=== PATIENT | female | born 2000 | race Caucasian/White ===

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

== ENCOUNTER 2024-05-09 10:12 | Emergency (ER) | payer MEDICAID ==
[~2024-05-09] VITALS: Ht 162.6 cm; Wt 77.8 kg
[2024-05-09 10:35] VITALS: PULSE 71
[2024-05-09 10:39] LABS: BILIRUBIN,URINE NEGATIVE (Neg); CLARITY,URINE CLEAR (Clear); COLOR,URINE STRAW (Yellow); GLUCOSE, URINE NEGATIVE (Neg); KETONES,URINE NEGATIVE (Neg); LEUKOCYTE ESTERASE ,URINE TRACE (Neg); NITRITES, URINE NEGATIVE (Neg); OCCULT BLOOD,URINE NEGATIVE (Neg); PH,URINE 6.5 (4.8-8.0); PROTEIN,URINE NEGATIVE (Neg); UA COLLECTION TYPE CLN CATCH MIDSTREAM; UROBILINOGEN,URINE 0.2 E.U/dL (0.2-1.0)
[2024-05-09 10:41] LABS: URINE HCG NEGATIVE (NEG)
[2024-05-09 10:42] LABS: BASOPHILS % (AUTO) 0.4 % (0-1); EOSINOPHILS % (AUTO) 0.5 % (0-6); HEMATOCRIT 45.1 % (35.0-45.0); HEMOGLOBIN 15.2 g/dl (12.0-16.0); LYMPHOCYTES # (AUTO) 1.8 X10'3 (1.1-4.8); LYMPHOCYTES % (AUTO) 27.6 % (21-51); MEAN CORPUSCULAR HEMOGLOBIN 30.7 PG (27.0-31.0); MEAN CORPUSCULAR HGB CONC 33.7 g/dL (33.0-36.5); MEAN CORPUSCULAR VOLUME 91.3 FL (78-98); MEAN PLATELET VOLUME 7.9 FL (7.4-10.4); MONOCYTES # (AUTO) 0.3 X10'3 (0-0.9); MONOCYTES % (AUTO) 4.2 % (2-12); NEUTROPHILS # (AUTO) 4.4 X10'3 (1.8-7.7); NEUTROPHILS % (AUTO) 67.3 % (42-75); PLATELET COUNT 265 X10'3 (140-440); RED BLOOD COUNT 4.94 X10'6 (4.20-5.60); RED CELL DISTRIBUTION WIDTH 13.6 % (11.5-14.5); WHITE BLOOD COUNT 6.6 X10'3 (4.5-11.0)
[2024-05-09 10:48] LABS: BACTERIA,URINE FEW /HPF (Neg); MUCUS STRANDS NONE SEEN /LPF (Neg); RBC,URINE NONE SEEN /HPF (0-2); SQUAMOUS EPITHELIAL CELL,UR FEW /LPF (FEW); WBC,URINE 0-4 /HPF (0-4)
[2024-05-09 11:37] LABS: ALANINE AMINOTRANSFERASE 32 U/L (12-78); ALBUMIN 3.8 G/DL (3.4-5.0); ALKALINE PHOSPHATASE 74 IU/L (46-116); ANION GAP 5 (8-16); ASPARTATE AMINO TRANSFERASE 19 U/L (10-37); BILIRUBIN,TOTAL 0.3 MG/DL (0.1-1.0); BLOOD UREA NITROGEN 11 MG/DL (7-18); BUN/CREATININE RATIO 11.5 (10.0-20.0); CALCIUM 9.1 MG/DL (8.5-10.1); CHLORIDE 103 MMOL/L (99-107); CREATININE 0.96 MG/DL (0.40-0.90); GLUCOSE 75 MG/DL (70-104); LIPASE 27 U/L (16-77); POTASSIUM 3.7 MMOL/L (3.5-5.1); SODIUM 139 MMOL/L (135-145); TOTAL CARBON DIOXIDE 30.7 MMOL/L (24-32); TOTAL PROTEIN 7.5 G/DL (6.4-8.2); eCRCL 77 ML/MIN; eGFR 71 ML/MIN
[2024-05-09] MEDS: LIDOcaine 2% Viscous 15ml cup MM STA (11:57)
[2024-05-09] MEDS: mag hydrox/Alum hydrox/simeth 30ml oral suspension PO ONE (11:57)
[2024-05-09] MEDS: pantoprazole 40mg Tablet.DR PO STA (11:57)
[2024-05-09 11:59] VITALS: BP 118/69; RESP 18; TEMP 98; O2SAT 98
== END 2024-05-09 12:06 | disposition home or self-care (01) ==
LOC: ER 10:12
DX: R10.30 Lower abdominal pain, unspecified (principal); R11.0 Nausea; F32.A Depression, unspecified
CPT/HCPCS: 36415; 80053; 81001; 81025; 83690; 85025; 87088; 99284

== ENCOUNTER 2024-06-15 01:53 | Emergency (ER) | payer MEDICAID ==
[~2024-06-15] VITALS: Ht 162.6 cm; Wt 89.1 kg
[2024-06-15 01:55] VITALS: BP 126/74; PULSE 86; TEMP 97.9; O2SAT 96
[2024-06-15] MEDS: HYDROmorphone 1 mg/ml syringe IM ONE (03:09)
[2024-06-15 03:50] VITALS: RESP 16
== END 2024-06-15 03:52 | disposition home or self-care (01) ==
LOC: ER 01:54
DX: G89.18 Other acute postprocedural pain (principal); F17.200 Nicotine dependence, unspecified, uncomplicated
CPT/HCPCS: 96372; 99283; J1171

== ENCOUNTER 2024-12-02 07:57 | Outpatient (CLI) | payer MEDICAID ==
[2024-12-02] VITALS (21 sets, daily range): BP systolic 72–137; BP diastolic 26–80; PULSE 59–116
== END 2024-12-02 23:59 | disposition home or self-care (01) ==
LOC: CARD DIAG 07:57
PROVIDERS: ATTEND Physician Assistant
DX: R42 Dizziness and giddiness (principal)
CPT/HCPCS: 93660